=== PATIENT | male | born 1990 | race African-American/Black ===

== ENCOUNTER 2020-12-10 12:18 | Emergency (ER) | payer OTHER ==
[~2020-12-10] VITALS: Ht 190.5 cm; Wt 102.0 kg
[2020-12-10] MEDS ORDERED: ALBUTEROL (0.083%) 2.5MG/3ML NEB HHN STA (12:55)
[2020-12-10] MEDS ORDERED: KETOROLAC 60MG/2ML VIAL IM ONE (13:00)
[2020-12-10] MEDS ORDERED: LORAZEPAM 1MG TABLET PO ONE (13:00)
[2020-12-10] MEDS ORDERED: IBUPROFEN 400MG TABLET PO ONE (14:00)
[2020-12-10 14:39] VITALS: BP 141/78
== END 2020-12-10 14:40 ==
LOC: ER 12:44
DX: R07.89 Other chest pain (principal); R51.9 Headache, unspecified; M79.641 Pain in right hand; M79.18 Myalgia, other site; F41.1 Generalized anxiety disorder; R45.1 Restlessness and agitation; R03.0 Elevated blood-pressure reading, without diagnosis of hypertension; J45.909 Unspecified asthma, uncomplicated
CPT/HCPCS: 71045; 73130; 93005; 94640; 96372; 99283; J1885; Z7610

== ENCOUNTER 2023-07-24 13:50 | Emergency (ER) | payer OTHER ==
[~2023-07-24] VITALS: Ht 190.5 cm; Wt 105.0 kg
[2023-07-24 13:55] VITALS: O2SAT 99
[2023-07-24 14:50] LABS: BASOPHILS % 0.8 % (0.0-2.0); DIFFERENTIAL COMMENT 0; EOSINOPHILS % 1.7 % (0.0-5.0); HEMATOCRIT. 41.3 % (42.0-52.0); HEMOGLOBIN. 14.1 g/dL (14.0-18.0); LYMPHOCYTES % 24.8 % (20.0-50.0); MEAN CORPUSCULAR HEMOGLOBIN 31.6 pg (28.0-32.0); MEAN CORPUSCULAR HGB CONC 34.2 g/dL (31.0-37.0); MEAN CORPUSCULAR VOLUME 92.2 fL (80.0-94.0); MEAN PLATELET VOLUME 10.2 fl (7.4-10.4); NEUTROPHILS % 62.7 % (40.0-76.0); PLATELET 165 x1000/uL (130-400); RED BLOOD CELL COUNT 4.48 mill/uL (4.7-6.1); RED CELL DISTRIBUTION WIDTH 13.2 % (11.6-14.6); WHITE BLOOD COUNT 5.9 x1000/uL (4.5-11.0)
[2023-07-24] MEDS: IBUPROFEN 600MG TABLET PO ONE (14:54)
[2023-07-24 14:57] LABS: CHLORIDE 109 mEq/L (98-107); POTASSIUM 4.3 mEq/L (3.5-5.1); SODIUM 140 mEq/L (136-145)
[2023-07-24 14:58] LABS: CALCIUM 8.9 mg/dL (8.7-10.4); CARBON DIOXIDE 26 mEq/L (21-32)
[2023-07-24 15:03] LABS: CREATININE 0.8 mg/dL (0.6-1.3); GLUCOSE 82 mg/dL (70-105); UREA NITROGEN BLOOD 7 mg/dL (9-23)
[2023-07-24 15:04] LABS: TROPONIN I HIGH SENSITIVITY 4 ng/L (3.0-53)
[2023-07-24 15:05] LABS: ALANINE AMINOTRANSFERASE 31 IU/L (10-49); ALBUMIN 4.2 g/dL (3.2-4.8); ASPARTATE AMINOTRANSFERASE 29 IU/L (<34); BILIRUBIN TOTAL 0.6 mg/dL (0.1-1.0); PROTEIN TOTAL 7.7 g/dL (6.0-8.3)
[2023-07-24 15:45] VITALS: BP 132/72; PULSE 68; RESP 18; TEMP 98.4
== END 2023-07-24 16:03 ==
LOC: ER 13:50
DX: R07.89 Other chest pain (principal); R06.00 Dyspnea, unspecified; F41.9 Anxiety disorder, unspecified; J45.909 Unspecified asthma, uncomplicated
CPT/HCPCS: 36415; 71045; 80053; 84484; 85025; 93005; 99285